=== PATIENT | female | born 1960 | race Caucasian/White ===

== ENCOUNTER 2021-04-30 20:58 | Emergency (ER) | payer OTHER, SELFPAY ==
[2021-04-30 21:00] VITALS: BP 176/99; PULSE 75; RESP 18; TEMP 36.8; O2SAT 97; BMI 23.7
--- NOTE | 2021-04-30 21:13 | CT_ITS ---
PROCEDURE INFORMATION: Exam: CT Abdomen And Pelvis Without Contrast Exam date and time: 04/30/2021 9:13 PM Age: 60 years old Clinical indication: Abdominal pain; Prior surgery; Surgery date: 6+ months; Surgery type: Gastric sleeve and laminectomy back; Patient HX: Left flank pain; Additional info: Lt flank pain TECHNIQUE: Imaging protocol: Computed tomography of the abdomen and pelvis without contrast. Radiation optimization: All CT scans at this facility use at least one of these dose optimization techniques: automated exposure control; mA and/or kV adjustment per patient size (includes targeted exams where dose is matched to clinical indication); or iterative reconstruction. COMPARISON: No relevant prior studies available. FINDINGS: Liver: Normal. No mass. Gallbladder and bile ducts: Normal. No calcified stones. No ductal dilation. Pancreas: Normal. No ductal dilation. Spleen: Normal. No splenomegaly. Adrenal glands: Normal. No mass. Kidneys and ureters: Normal. No hydronephrosis. Stomach and bowel: Postoperative changes of the stomach noted. Appendix: No evidence of appendicitis. Intraperitoneal space: Unremarkable. No free air. No significant fluid collection. Vasculature: Unremarkable. No abdominal aortic aneurysm. Lymph nodes: Unremarkable. No enlarged lymph nodes. Urinary bladder: Unremarkable as visualized. Reproductive: Unremarkable as visualized. Bones/joints: [id number] multilevel degenerative changes of the spine. Soft tissues: Unremarkable. 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 IMPRESSION: 1. No renal, ureteral or bladder stones identified. 2. 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
[2021-04-30 21:46] LABS: Basophils # 0.1 K/mm3 (0-0.2); Basophils % 1.1 % (0.1-2.0); Eosinophils # 0.2 K/mm3 (0.0-0.4); Eosinophils % 2.3 % (0.1-12.0); Hematocrit 39.4 % (37.0-47.0); Hemoglobin 13.9 g/dL (12.2-16.2); Lymphocytes # 2.9 K/mm3 (0.7-4.5); Mean Corpuscular HGB Conc 35.2 g/dL (31.8-35.4); Mean Corpuscular Hemoglobin 34.6 pg (27.0-31.2); Mean Corpuscular Volume 98.4 fl (81-99); Monocytes # 0.5 K/mm3 (0.1-1.0); Monocytes % 5.7 % (1.7-9.3); Neutrophils # 5.8 K/mm3 (1.8-7.8); Neutrophils % 60.8 % (37.0-80.0); Platelet Count 300 K/mm3 (142-424); Red Blood Count 4.01 M/mm3 (4.20-5.40); Red Cell Distribution Width 13.8 % (11.5-17.5); White Blood Count 9.5 K/mm3 (4.8-10.8)
--- NOTE | 2021-04-30 21:46 | [facility].EDNVD ---
ED Disposition Clinical Impression: Flank pain, acute, Elevated lipase, Teratoma of pelvis Disposition: Home, Self-Care Condition on Discharge: Good Instructions: DI for Acute Abdominal Pain Additional Instructions: call [employer] police for follow up Referrals: Provider,Referral, [Primary Care Provider] - - Critical Care Critical Care Time: No Attestation: On 04/30/21, the high probability of a clinically significant, sudden or life threatening deterioration of the following system(s) required my full and direct attention, intervention and personal management. The time I documented below is in addition to time spent performing reported procedures but includes the following listed in this critical care notation. Medical Decision Making - Medical Records Medical records reviewed: Yes: I reviewed the patient's medical records. - Jonathon Inquiry Pt receiving controlled substance: No Vital Signs: 04/30/21 21:00 Temperature 98.2 F Temperature Source Oral Pulse Rate [Right] 75 Respiratory Rate 18 Blood Pressure [Right Arm] 176/99 H Blood Pressure Mean [Right Arm] 124 02 Sat by Pulse Oximetry 97 - Lab Data Lab results reviewed: Yes: I reviewed the patient's lab results. Lab Results 04/30/21 21:21: WBC 9.5, RBC 4.01 L, Hgb 13.9, Hct 39.4, MCV 98.4, MCH 34.6 H, MCHC 35.2, RDW 13.8, Plt Count 300, MPV 8.0, Neut % (Auto) 60.8, Lymph % (Auto) 30.0, [place] % (Auto) 5.7, Eos % (Auto) 2.3, Baso % (Auto) 1.1, Neut # (Auto) 5.8, Lymph # (Auto) 2.9, [place] # (Auto) 0.5, Eos # (Auto) 0.2, Baso # (Auto) 0.1 04/30/21 21:21: Sodium 139, Potassium 3.3 L, Chloride 100, Carbon Dioxide 25, Anion Gap 17.3 H, BUN 17, Creatinine 0.80, Estimated Creat Clear 86, Estimated GFR 74, Est GFR ( Amer) 89, Glucose 107 H, Calcium 9.2, Total Bilirubin 0.4, AST 44 H, ALT 32, Alkaline Phosphatase 78, C-Reactive Protein 2.3, Total Protein 7.9, Albumin 4.7, Globulin 3.2, Albumin/Globulin Ratio 1.5, Amylase 86, Lipase 399 H, Procalcitonin < 0.030 04/30/21 21:30: Urine Color Yellow, Urine Appearance Clear, Urine pH 6.0, Ur Specific [place] <= 1.005, Urine Protein Negative, Urine Glucose (UA) Negative, Urine Ketones Negative, Urine Blood Negative, Urine Nitrate Negative, Urine Bilirubin Negative, Urine Urobilinogen 0.2, Ur Leukocyte Esterase Trace Result diagrams: 04/30/21 21:21 04/30/21 21:21 Orders (Tests/Meds): ED MEDICATIONS Generic Name Dose Route Start Last Admin Trade Name Freq PRN Reason Stop Dose Admin Sodium Chloride 1,000 mls @ 999 mls/hr 04/30/21 21:15 04/30/21 21:35 Sod Chlor 0.9% 1000ml Bag IV 04/30/21 22:15 999 mls/hr .[id number] DON Administration Discontinued Medications Generic Name Dose Route Start Last Admin Trade Name Freq PRN Reason Stop Dose Admin Hydromorphone HCl 1 mg 04/30/21 22:37 04/30/21 22:39 Hydromorphone 2mg/Ml Syringe IV 04/30/21 22:38 1 mg ONCE ONE Administration Ketorolac Tromethamine 30 mg 04/30/21 21:13 04/30/21 21:35 Ketorolac 30mg/Ml Vial IV 04/30/21 21:14 30 mg ONCE ONE Administration Morphine Sulfate 4 mg 04/30/21 21:54 04/30/21 21:55 Morphine 4mg/Ml Syringe IV 04/30/21 21:55 4 mg ONCE ONE Administration Ondansetron HCl 4 mg 04/30/21 21:13 04/30/21 21:35 Ondansetron 4mg/2ml Vial IV 04/30/21 21:14 4 mg ONCE ONE Administration ORDERS Category Date Time Status Complete Blood Count Auto Diff Stat Lab 04/30/21 21:21 Results Erythrocyte Sedimentation Rate Stat Lab 04/30/21 21:21 Results Urinalysis and Microscopic Stat Lab 04/30/21 21:30 Results - CT Data CT Scan: Abdomen, Pelvis Time Received: 23:[address] Reviewed: Yes: I have viewed the radiologist's interpretation Preliminary Findings: Abnormal (rt pelvis teratoma ) Medical Decision Narrative: has mild elevation of lipase with nl pancreas on ct but has teratoma in rt pelvis Nausea/Vomiting/Diarrhea HPI - General Chief complaint: Abdominal Pain Stated complaint: back pain b
[2021-04-30 22:09] LABS: Microscopic, Urine URINE MICROSCOPIC (MICROSCOPIC)
[2021-04-30 22:32] LABS: Appearance,Urine CLEAR (Clear); Bilirubin,Urine Negative (Negative); Blood, Urine Negative (Negative); Color,Urine YELLOW (Yellow); Glucose,Urine (UA) Negative (Negative); Ketones,Urine Negative (Negative); Leukocyte Esterase,Urine TRACE (Negative); Nitrate,Urine Negative (Negative); Protein,Urine Negative (Negative); Specific Gravity, Urine <= 1.005 (1.005-1.030); Urobilinogen,Urine 0.2 EU/dl (0.2)
[2021-04-30 22:54] LABS: Alanine Aminotransferase 32 U/L (12-78); Albumin Level 4.7 g/dl (3.5-5.0); Albumin/Globulin Ratio 1.5 (1.1-1.8); Alkaline Phosphatase 78 U/L (38-126); Amylase 86 U/L (30-110); Anion Gap 17.3 mEq/L (5-15); Aspartate Amino Transferase 44 U/L (14-36); Bilirubin,Total 0.4 mg/dl (0.2-1.3); Blood Urea Nitrogen 17 mg/dl (7-17); Calcium 9.2 mg/dl (8.4-10.2); Carbon Dioxide 25 mmol/L (22.0-30.0); Chloride 100 mmol/L (98-107); Creatinine Clearance Estimated 86 mL/min (50-200); Estimated Glomerular Filt Rate 74 ml/min (>60); GFR (African American) 89 ML/MIN (>60); Globulin 3.2 g/dL (1.3-3.2); Glucose 107 mg/dl (74-100); Lipase 399 U/L (23-300); Potassium 3.3 mmoL/L (3.5-5.1); Sodium 139 mmol/L (136-145); Total Protein,Serum 7.9 g/dl (6.3-8.2)
[2021-04-30 23:00] LABS: C-Reactive Protein 2.3 mg/L (0-4)
[2021-04-30 23:15] LABS: Procalcitonin < 0.030 ng/mL (0.0-2.0)
[2021-05-01 00:01] LABS: WBC,Urine Occasional #/hpf (0-3)
[2021-05-01 00:11] VITALS: BP 148/71; PULSE 81; RESP 18; TEMP 36.6; O2SAT 98
[2021-05-01 00:24] LABS: Erythrocyte Sedimentation Rate 25 mm/hr (0-30)
== END 2021-05-01 00:13 | disposition home or self-care (01) ==
PROVIDERS: Emergency Provider Emergency Medicine
DX: R10.32 Left lower quadrant pain (principal); D48.7 Neoplasm of uncertain behavior of other specified sites; R74.8 Abnormal levels of other serum enzymes
CPT/HCPCS: 74176; 80053; 81001; 82150; 83690; 84145; 85025; 85651; 86140; 96365; 96375; 99283; J2405